=== PATIENT | female | born 1965 | race Caucasian/White ===

== ENCOUNTER 2019-11-17 02:27 | Emergency (ER) | payer BC ==
[2019-11-17 02:45] VITALS: BP 156/95; PULSE 87
[2019-11-17] MEDS ORDERED: HYDROmorphone 1 MG/ML Syringe IVPUSH ONE (03:11)
[2019-11-17] MEDS ORDERED: Sodium Chloride 0.9% 10 ML Syringe FLUSH PRN (03:11)
[2019-11-17] MEDS ORDERED: Ondansetron 4 MG/2 ML SDV IVPUSH ONE (03:12)
[2019-11-17] MEDS ORDERED: Sodium Chloride 0.9% 1,000 ML IV SCH (03:15)
--- NOTE | 2019-11-17 03:22 | EDM.PDOC ---
ED HPI GENERAL MEDICAL PROBLEM - General Chief Complaint: Back Pain or Injury Stated Complaint: LOWER BACK PAIN THAT GOES DOWN LEFT LEG Time Seen by Provider: 11/17/19 02:50 Source of Information: Reports: Patient, Family () History Limitations: Reports: No Limitations - History of Present Illness INITIAL COMMENTS - FREE TEXT/NARRATIVE: Mrs. Spaulding is a very pleasant 53-year-old woman with a past medical history significant for migraines and trigeminal neuralgia, status post right facial decompressive surgery, who now presents the ED stating that she developed lower left back/upper left buttock pain about 24 hours ago, early yesterday morning, 11/16/2019. She states that the pain radiates down her anterolateral left thigh down to the knee. Her pain is made worse with movement or palpation. She took 4 tablets of ibuprofen, and got in to see her chiropractor twice yesterday, with some improvement in her symptoms, however, she states that around midnight tonight the pain became even more severe than before. The patient's points out that there is a bruise to the patient's upper left buttock, and the patient states that that is the area where her pain is centralized. She denies having any trauma to the area - she states that she did not fall, and that nothing struck her on that area. The patient states that she injured her lower left back, essentially in the same area, about 1 month ago, when she was gardening, and pulled on a trailer. She states that her animal therapist slipped, causing her to strain her lower left back, but that her pain was only short-lived, and since then, she has resumed normal activity. Here in the ED, the patient's initial BP is found to be elevated at 156/95, otherwise, she is hemodynamically stable, afebrile, saturating 98% on room air. Other than the back pain issue, the patient denies recent fever, chills, sore throat, ear pain, nasal or sinus congestion, cough, dyspnea, chest pain, palpitations, nausea, vomiting, constipation, diarrhea, abdominal pain, urinary symptoms, recent weight gain or weight loss, recent bloody bowel movements or black bowel movements, recent joint aches, headaches, or rashes. The patient's PCP is Dr. Jai Workman. She has seen Zahira Bishop NP, for a Pap smear in the past. Left Lower Back Pain Score (Numeric/FACES): 10 - Related Data Allergies Allergy/AdvReac Type Severity Reaction Status Date / Time No Known Allergies Allergy Verified 11/17/19 02:39 Home Meds: Home Meds Acetaminophen/HYDROcodone [[place] 325-5 MG] 1 - 2 tab PO Q6H PRN #10 tablet 11/17/19 [Rx] Orphenadrine [Norflex] 1 tab PO Q12H PRN #14 tab 11/17/19 [Rx] Past Medical History Neurological History: Reports: Migraines, Other (See Below) (Right trigeminal neuralgia, s/p decompressive surgery) - Past Surgical History HEENT Surgical History: Reports: Adenoidectomy, Tonsillectomy GI Surgical History: Reports: Appendectomy Female Surgical History: Reports: Hysterectomy (partial) Neurological Surgical History: Reports: Other (See Below) (Right facial decompressive surgery 2016) Social & Family History - Tobacco Use Smoking Status *Q: Never Smoker - Caffeine Use Caffeine Use: Reports: Coffee - Alcohol Use Alcohol Use History: Yes Alcohol Use Frequency: Socially - Recreational Drug Use Recreational Drug Use: No - Living Situation & Occupation Living situation: Reports: , with Spouse 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 ED EXAM,LOWER BACK PAIN/INJURY - Physical Exam Exam: See Below Exam Limited By: Other (The patient prefers to remain standing, bent over the back of the rney. She is tearful, complaining of severe pain with any movement.) General Appearance: Alert, WD/WN, Mild Distress (appears to be in pain) Back Exam: Other (There is a tender ecchymosis, approximately 5 cm in diameter, to the upper left buttock. No other visible abnormalities to the patient's back, such as swelling, erythema, or abrasions. No tenderness to palpation along the vertebral spinous processes. There is some tenderness to the left lumbosacral soft tissue, and significant tenderness to the area of the ecchymosis, but no tenderness to paraspinal soft tissue elsewhere.) Course - Vital Signs Last Recorded V/S: Last Vital Signs Temp 36.4 C 11/17/19 02:36 Pulse 87 11/17/19 02:36 Resp 18 11/17/19 02:36 BP 156/95 H 11/17/19 02:36 Pulse Ox 98 11/17/19 02:36 - Orders/Labs/Meds Orders: Active Orders 24 hr Category Date Time Status Peripheral IV Care [RC] . DIRECTED Care 11/17/19 03:12 Active Lumbar Spine w Cont [CT] Stat Exams 11/17/19 03:11 Taken Pelvis w Cont [CT] Stat Exams 11/17/19 03:11 Taken Sodium Chloride 0.9% [Normal Saline] 1,000 ml Med 11/17/19 03:15 Active IV ASDIRECTED Sodium Chloride 0.9% [Saline Flush] Med 11/17/19 03:11 Active 10 ml FLUSH ASDIRECTED PRN Peripheral IV Insertion Adult [OM.PC] Routine Oth 11/17/19 03:11 Ordered Medication Orders Sodium Chloride (Normal Saline) 1,000 mls @ 150 mls/hr IV ASDIRECTED CHRIST Last Admin: 11/17/19 03:20 Dose: 150 mls/hr Documented by: ERNESTINA Sodium Chloride (Saline Flush) 10 ml FLUSH ASDIRECTED PRN PRN Reason: Keep Vein Open Last Admin: 11/17/19 03:21 Dose: 10 ml Documented by: ERNESTINA Labs: Laboratory Tests 11/17/19 11/17/19 11/17/19 Range/Units 03:14 03:14 03:14 WBC 10.24 H (3.98-10.04) K/mm3 RBC 4.57 (3.98-5.22) M/mm3 Hgb 13.3 (11.2-15.7) gm/dl Hct 41.0 (34.1-44.9) % MCV 89.7 D (79.4-94.8) fl MCH 29.1 (25.6-32.2) pg MCHC 32.4 (32.2-35.5) g/dl RDW Std Deviation 43.0 (36.4-46.3) fL Plt Count 268 (182-369) K/mm3 MPV 10.0 (9.4-12.3) fl Neutrophils % (Manual) 78 H (40-60) % Band Neutrophils % 0 (0-10) % Lymphocytes % (Manual) 21 (20-40) % Atypical Lymphs % 0 % Monocytes % (Manual) 0 L (2-10) % Eosinophils % (Manual) 1 (0.7-5.8) % Basophils % (Manual) 0 L (0.1-1.2) Platelet Estimate Adequate RBC Morph Comment Normal PT 9.7 (9.7-12.0) SECONDS INR 0.93 APTT 26 (22-31) SECONDS Sodium 139 (136-145) mEq/L Potassium 3.9 (3.5-5.1) mEq/L Chloride 103 (98-107) mEq/L Carbon Dioxide 22 (21-32) mEq/L Anion Gap 17.9 H (5-15) BUN 28 H (7-18) mg/dL Creatinine 1.0 (0.55-1.02) mg/dL Est Cr Clr Drug Dosing 64.72 mL/min Estimated GFR (MDRD) 58 (>60) mL/min BUN/Creatinine Ratio 28.0 H (14-18) Glucose 113 H (74-106) mg/dL Calcium 9.3 (8.5-10.1) mg/dL Total Bilirubin 0.4 (0.2-1.0) mg/dL AST 13 L (15-37) U/L ALT 25 (14-59) U/L Alkaline Phosphatase 83 (46-116) U/L Total Protein 7.5 (6.4-8.2) g/dl Albumin 4.2 (3.4-5.0) g/dl Globulin 3.3 gm/dL Albumin/Globulin Ratio 1.3 (1-2) Meds: Medications Generic Name Dose Route Start Last Admin Trade Name Freq PRN Reason Stop Dose Admin Sodium Chloride 1,000 mls @ 150 mls/hr 11/17/19 03:15 11/17/19 03:20 Normal Saline IV 150 mls/hr ASDIRECTED CHRIST Administration Sodium Chloride 10 ml 11/17/19 03:11 11/17/19 03:21 Saline Flush FLUSH 10 ml ASDIRECTED PRN Administration Keep Vein Open Discontinued Medications Generic Name Dose Route Start Last Admin Trade Name Freq PRN Reason Stop Dose Admin Hydromorphone HCl 1 mg 11/17/19 03:11 11/17/19 03:20 Dilaudid IVPUSH 11/17/19 03:12 1 mg ONETIME ONE Administration Iopamidol 50 ml 11/17/19 04:24 11/17/19 04:25 Isovue-300 (61%) IVPUSH 11/17/19 04:25 50 ml ONETIME ONE Administration Ondansetron HCl 4 mg 11/17/19 03:12 11/17/19 03:20 Zofran IVPUSH 11/17/19 03:13 4 mg ONETIME ONE Administration - Re-Assessments/Exams Free Text/Narrative Re-Assessment/Exam: 11/17/19 03:13 As above, the patient has had about 24 hours of lower left back/upper left buttock pain that radiates down her left lower extremity to her knee. This would seem like a relatively straightforward presentation of sciatica except for the presence of an ecchymosis to the area of her pain that she states developed no trauma. At first I thought that it might have been caused by her chiropractor's manipulations, except the patient states that her chiropractor pointed the bruise out. Additionally, the patient has an inordinate degree of tenderness to that area - far more than would be caused by a simple bruise. I am therefore concerned that there may be something going on beneath the surface, and I therefore recommended a CT of the area with IV contrast. The patient agreed. I have additionally ordered blood work, including coags. In the meantime, the patient will be treated with IV Dilaudid, IV Zofran, and IV fluid. 11/17/19 04:24 The patient's CBC is remarkable for a WBC count mildly elevated at 10.24, but with 0% bandemia. The remainder of her CBC is unremarkable. Her CMP is remarkable for an anion gap elevated at 17.9, but with a bicarbonate normal at 22. Her BUN is elevated at 28, but her Cr is normal at 1.0. Her blood glucose is slightly elevated at 113, with the remainder of her CMP being unremarkable. Her coags are within normal limits. 11/17/19 04:36 CT of the lumbar spine with IV contrast as read by [facility] as: 1. Mild degenerative change at L3-L4. No significant central canal or foraminal stenosis. 2. No acute osseous abnormality. 11/17/19 04:38 CT of the pelvis with IV contrast is read by [facility] as "No acute fracture or dislocation. No acute osseous abnormality." 06/18/20 04:43 Test results discussed with the patient and her . The patient states that the [place] "Took the edge off, just a little", however, the patient appears to be much more comfortable than she did prior to the [place]. The CT scan does not indicate that the patient's pain is due to a herniated intervertebral disc, however, her sciatica could be caused by a muscle spasm in the buttock area, causing some compression of the sciatic nerve. I am therefore recommending that she take [id number] ibuprofen along with a muscle relaxant. At this point in time, steroids are not indicated. I will help her with her pain with a small prescription for [place], however, I am also recommending that she follow- up with her PCP for further evaluation, particularly if she continues to need opioids. Both the patient and her expressed understanding. Departure - Departure Time of Disposition: 04:45 Disposition: Home, Self-Care 01 Condition: Good Clinical Impression: Left sided sciatica - Discharge Information *PRESCRIPTION DRUG MONITORING PROGRAM REVIEWED*: Not Applicable *COPY OF PRESCRIPTION DRUG MONITORING REPORT IN PATIENT JASMIN: Not Applicable Prescriptions: Acetaminophen/HYDROcodone [[place] 325-5 MG] 1 - 2 tab PO Q6H PRN #10 tablet PRN Reason: Pain (Severe 7-10) Orphenadrine [Norflex] 1 tab PO Q12H PRN #14 tab PRN Reason: Muscle Spasm Referrals: Jai Workman MD [Primary Care Provider] - Zahira Bishop NP [Nurse Practitioner] - Forms: ED Department Discharge Additional Instructions: You were seen in the emergency room for lower left back/upper left buttock pain that radiated down your left thigh to your knee. Work-up in the ER included blood work and a CT scan of your lumbar spine and pelvis with IV contrast. Your blood work was unremarkable. There is no sign of a coagulopathy. The CT scans were unremarkable and do not explain the cause of your pain. Based on your history, physical exam, and ER tests, your pain is most likely caused by sciatica due to inflammation of the sciatic nerve, possibly due to a muscle spasm in your lower back/upper buttock. We recommend that you take [id number] ibuprofen, 3 tablets (600 mg) every 8 hours, with food, [id number]. You have been started on the muscle relaxant Norflex. Take 1 tablet of Norflex every 12 hours, starting this evening, , 11/17/2019, as prescribed. You may take 1 to 2 tablets of the opioid pain reliever [place] up to every 6 hours, as needed for pain not relieved by ibuprofen and Norflex. If you take Virginia, do not drive for 12 hours afterwards. [place] may cause constipation, so consider taking a stool softener. Despite your pain, it is very important that you stay active. Swimming is best, but walking is good, as well. Do not stay sedentary. If your pain persists beyond a couple of days, please follow-up with your PCP, Dr. Jai Workman, for further evaluation. If any other problems, please do not hesitate to return to the ER. Sepsis Event Note (ED) - Evaluation Sepsis Screening Result: No Definite Risk - Focused Exam Vital Signs: Vital Signs Temp Pulse Resp BP Pulse Ox 11/17/19 02:36 36.4 C 87 18 156/95 H 98 - My Orders Last 24 Hours: My Active Orders 11/17/19 03:11 Lumbar Spine w Cont [CT] Stat Pelvis w Cont [CT] Stat Sodium Chloride 0.9% [Saline Flush] 10 ml FLUSH ASDIRECTED PRN Peripheral IV Insertion Adult [OM.PC] Routine 11/17/19 03:12 Peripheral IV Care [RC] . DIRECTED 11/17/19 03:15 Sodium Chloride 0.9% [Normal Saline] 1,000 ml IV ASDIRECTED - Assessment/Plan Last 24 Hours: My Active Orders 11/17/19 03:11 Lumbar Spine w Cont [CT] Stat Pelvis w Cont [CT] Stat Sodium Chloride 0.9% [Saline Flush] 10 ml FLUSH ASDIRECTED PRN Peripheral IV Insertion Adult [OM.PC] Routine 11/17/19 03:12 Peripheral IV Care [RC] . DIRECTED 11/17/19 03:15 Sodium Chloride 0.9% [Normal Saline] 1,000 ml IV ASDIRECTED
[2019-11-17] MEDS ORDERED: Iopamidol 612 MG/ML 50 ML SDV IVPUSH ONE (04:24)
[2019-11-17] MEDS ORDERED: Orphenadrine 100 MG Tab.ER PO STA (04:48)
--- NOTE | 2019-11-17 06:32 | CT ---
CT lumbar spine Technique: Multiple axial sections were obtained were obtained from above the T10-11 disc inferiorly through the L5-S1 disc. Reconstructed coronal and sagittal images were obtained. Comparison: No prior lumbar spine imaging is available. Findings: T10-11: Posterior disc is preserved. No central canal stenosis or neural foraminal stenosis is seen. T11-12: Posterior disc is maintained. No central canal stenosis or neural foraminal stenosis is seen. T12-L1: Posterior is maintained. No central canal stenosis or neural foraminal stenosis is seen. L1-2: Posterior disc is maintained. Mild circumferential disc bulge otherwise seen. No central canal stenosis or neural foraminal stenosis is seen. L2-3: Mild disc space narrowing noted. Posterior disc maintains a slight concave margin. Disc otherwise show a circumferential bulge. No central canal stenosis or neural foraminal stenosis is seen. L3-4: Mild circumferential disc bulge is seen. Posterior disc maintains minimally concave margin. No central canal stenosis is seen. Neural foramina are patent were the nerve roots exit. Mild degenerative apophyseal change is seen. L4-5: Slight circumferential disc bulge is seen. Minimal degenerative apophyseal change is noted. No central canal stenosis or neural foraminal stenosis is seen. L5-S1: Physiologic disc bulge noted posteriorly. Minimal degenerative apophyseal change is noted. No central canal stenosis is seen. Neural foramina are patent were the nerve roots exit. No fracture is appreciated. Mild scattered endplate osteophytes are seen. No abnormal subluxation is appreciated. Impression: 1. Mild degenerative change as noted above. 2. Nothing acute is appreciated on CT study of the lumbar spine. Diagnostic code #2 This report was dictated in MDT I agree with preliminary report from chi, finalized on 11/17/19, 5:30 AM Central Daylight Time
--- NOTE | 2019-11-17 21:36 | CT ---
Pelvis: Multiple axial section through the pelvis was obtained. Intravenous contrast was not utilized. Reconstructed coronal and sagittal images were obtained. Comparison: No prior pelvis exam. Findings: No intrapelvic abnormality is appreciated. Sacroiliac joints appear within normal limits. Joint spaces within both hips are maintained. No fracture or other bony abnormality is appreciated. Impression: 1. Nothing acute is appreciated on CT study of the pelvis. Diagnostic code #1 This report was dictated in MDT I agree with preliminary report from Jean Carlos, finalized on 11/17/19, 5:35 AM Central Daylight Time [facility]
== END 2019-11-17 04:58 | disposition home or self-care (01) ==
LOC: JD.ED 02:27
DX: M54.42 Lumbago with sciatica, left side (principal)
CPT/HCPCS: 36415; 72132; 72193; 80053; 85007; 85027; 85610; 85730; 96374; 96375; 99284; A9270; J1170; J2405; J7030; Q9967

== ENCOUNTER 2022-09-01 10:47 | Emergency (ER) | payer OTHER, BC ==
[2022-09-01 11:04] VITALS: BP 176/113; PULSE 83
[2022-09-01] MEDS ORDERED: Metoclopramide 10 MG/2 ML SDV IM ONE (11:27)
[2022-09-01] MEDS ORDERED: diphenhydrAMINE 50 MG/ML SDV IM ONE (11:27)
[2022-09-01] MEDS ORDERED: Ketorolac 30 MG/ML SDV IM ONE (11:27)
[2022-09-01] MEDS ORDERED: HYDROmorphone 0.5 MG/0.5 ML Syringe IM ONE (12:38)
== END 2022-09-01 12:59 | disposition home or self-care (01) ==
LOC: JD.ED 10:47
DX: R51.9 Headache, unspecified (principal); M54.50 Low back pain, unspecified
CPT/HCPCS: 93005; 96372; 99284; J1170; J1200; J1885; J2765